=== PATIENT | male | born 1990 | race African-American/Black ===

== ENCOUNTER 2018-12-16 05:42 | Emergency (ER) | payer MEDICAID ==
[~2018-12-16] VITALS: Ht 193 cm; Wt 92.0 kg
[2018-12-16] MEDS ORDERED: HYDROCODONE/ACETAMINOPHEN 5/325MG TABLET PO ONE (06:30)
[2018-12-16 07:10] VITALS: BP 148/97
== END 2018-12-16 07:12 | disposition home or self-care (01) ==
LOC: ER 05:42
DX: S03.2XXA Dislocation of tooth, initial encounter (principal); X58.XXXA Exposure to other specified factors, initial encounter; Y93.9 Activity, unspecified; Y92.9 Unspecified place or not applicable; K08.89 Other specified disorders of teeth and supporting structures
CPT/HCPCS: 99283